=== PATIENT | female | born 2000 | race Caucasian/White ===

== ENCOUNTER 2020-03-26 05:11 | Emergency (ER) | payer OTHER ==
[~2020-03-26] VITALS: Ht 182.9 cm; Wt 152.4 kg
[2020-03-26] MEDS ORDERED: MIRT30 PO (05:36)
[2020-03-26 05:47] LABS: BASOPHILS ABSOLUTE AUTO 0.08 K/mm3 (0.00-0.23); BASOPHILS PERCENT AUTO 1 % (0-2); EOSINOPHILS ABSOLUTE AUTO 0.15 K/mm3 (0.00-0.68); EOSINOPHILS PERCENT AUTO 1 % (0-6); Hematocrit 41.7 % (33.0-51.0); Hemoglobin 13.5 g/dL (11.5-16.0); IMMATURE GRAN ABSOLUTE AUTO 0.03 K/mm3 (0.00-0.10); IMMATURE GRAN PERCENT AUTO 0 % (0-1); LYMPHOCYTES ABSOLUTE AUTO 3.35 K/mm3 (0.84-5.20); LYMPHOCYTES PERCENT AUTO 26 % (21-46); MONOCYTES ABSOLUTE AUTO 1.31 K/mm3 (0.16-1.47); MONOCYTES PERCENT AUTO 10 % (4-13); Mean Corpuscular HGB 28.1 pg (26.0-34.0); Mean Corpuscular HGB Conc 32.4 g/dL (31.5-36.5); Mean Corpuscular Volume 87 fL (80-100); Mean Platelet Volume 11.5 fL (9.1-12.4); NEUTROPHILS ABSOLUTE AUTO 7.97 K/mm3 (1.96-9.15); NEUTROPHILS PERCENT AUTO 62 % (41-73); Platelet Count 255 K/mm3 (150-400); RDW Coefficient Variation 12.9 % (11.7-14.2); RDW Standard Deviation 41.1 fL (35.1-46.3); White Blood Cell Count 12.89 K/mm3 (4.00-11.30)
[2020-03-26 06:05] LABS: Alanine Aminotransfer (ALT/SGP 24 U/L (12-78); Albumin, Blood 3.6 g/dL (3.4-5.0); Albumin/Globulin Ratio 0.9 (0.8-1.8); Alk Phos 107 U/L (45-116); Anion Gap 7 mmol/L (6-16); Aspartate Aminotrans (AST/SGOT 16 U/L (12-37); Bilirubin, Total 0.2 mg/dL (0.1-1.0); Blood Urea Nitrogen 11 mg/dL (8-21); Bun/Creatinine Ratio 9.7 (12.0-20.0); CO2, Blood 25 mmol/L (21-32); Calcium, Blood 8.7 mg/dL (8.5-10.1); Chloride, Blood 109 mmol/L (98-108); Creatinine, Blood 1.13 mg/dL (0.40-1.00); Globulin, Blood 3.8 g/dL (2.2-4.0); Glomerular Filtration Rate >60 (60-); Glucose, Blood 93 mg/dL (70-99); Potassium, Blood 3.7 mmol/L (3.5-5.5); Sodium, Blood 141 mmol/L (136-145); Total Protein, Blood 7.4 g/dL (6.4-8.2)
[2020-03-26 06:10] LABS: Source, Urine Clean Catch
[2020-03-26 06:13] LABS: Bilirubin, Urine Neg (Neg); Blood, Urine Neg (Neg); Glucose Qualitative, Urine Neg (Neg); Ketones, Urine 1+ (Neg); Leukocyte Esterase, Urine 2+ (Neg); Nitrite, Urine Neg (Neg); Protein, Urine 1+ (Neg); Urobilinogen, Urine 1+ (Normal); pH, Urine 6.5 (5.0-8.0)
[2020-03-26 06:33] LABS: Color, Urine Yellow (P-Yellow)
[2020-03-26 06:34] LABS: Appearance, Urine Clear (Clear)
[2020-03-26 06:35] LABS: Bacteria Few /hpf; Mucus Light (0-Heavy); Red Blood Cells, Urine 0-2 /hpf (0-2); Squamous Epithelial Cells Few /hpf (Few)
[2020-03-26] MEDS ORDERED: Prednisone20 MG PO (06:51)
[2020-03-26] MEDS ORDERED: Prilosec Otc20 MG PO (06:51)
== END 2020-03-26 07:05 | disposition home or self-care (01) ==
LOC: ER 05:11
PROVIDERS: Emergency Medicine
DX: R10.10 Upper abdominal pain, unspecified (principal); R05 Cough; F41.9 Anxiety disorder, unspecified; Z79.899 Other long term (current) drug therapy
CPT/HCPCS: 36415; 71046; 80053; 81001; 81025; 83690; 85025; 87086; 99283-25

== ENCOUNTER 2020-04-25 08:22 | Emergency (ER) | payer OTHER ==
[~2020-04-25] VITALS: Ht 182.9 cm; Wt 107.0 kg
[~2020-04-25 08:22] MED LIST: MIRT30 PO; Prednisone20 MG PO; Prilosec Otc20 MG PO
[2020-04-25] MEDS ORDERED: HYDHCL25 PO (13:24)
[2020-04-25] MEDS ORDERED: IBUP400 PO (13:24)
== END 2020-04-25 13:35 | disposition home or self-care (01) ==
LOC: ER 08:22
DX: J40 Bronchitis, not specified as acute or chronic (principal); F41.9 Anxiety disorder, unspecified; K21.9 Gastro-esophageal reflux disease without esophagitis; Z79.899 Other long term (current) drug therapy
CPT/HCPCS: 36415; 71046; 83880; 85379; 93005; 93010; 99284-25

== ENCOUNTER 2020-05-12 04:52 | Observation (INO) | payer OTHER ==
[~2020-05-12] VITALS: Ht 182.9 cm; Wt 122.5 kg
[~2020-05-12 04:52] MED LIST changes: +HYDHCL25 PO; +IBUP400 PO; -MIRT30 PO; +Mirtazapine7.5 MG PO
[2020-05-12 05:44] LABS: BASOPHILS ABSOLUTE AUTO 0.06 K/mm3 (0.00-0.23); BASOPHILS PERCENT AUTO 1 % (0-2); EOSINOPHILS ABSOLUTE AUTO 0.14 K/mm3 (0.00-0.68); EOSINOPHILS PERCENT AUTO 1 % (0-6); Hematocrit 40.6 % (33.0-51.0); Hemoglobin 13.1 g/dL (11.5-16.0); IMMATURE GRAN ABSOLUTE AUTO 0.05 K/mm3 (0.00-0.10); IMMATURE GRAN PERCENT AUTO 1 % (0-1); LYMPHOCYTES ABSOLUTE AUTO 3.13 K/mm3 (0.84-5.20); LYMPHOCYTES PERCENT AUTO 31 % (21-46); MONOCYTES ABSOLUTE AUTO 1.06 K/mm3 (0.16-1.47); MONOCYTES PERCENT AUTO 11 % (4-13); Mean Corpuscular HGB 27.8 pg (26.0-34.0); Mean Corpuscular HGB Conc 32.3 g/dL (31.5-36.5); Mean Corpuscular Volume 86 fL (80-100); Mean Platelet Volume 12.1 fL (9.1-12.4); NEUTROPHILS ABSOLUTE AUTO 5.62 K/mm3 (1.96-9.15); NEUTROPHILS PERCENT AUTO 56 % (41-73); Platelet Count 290 K/mm3 (150-400); RDW Coefficient Variation 13.1 % (11.7-14.2); Red Blood Cell Count 4.71 M/mm3 (3.80-5.20); White Blood Cell Count 10.06 K/mm3 (4.00-11.30)
[2020-05-12 06:12] LABS: Alanine Aminotransfer (ALT/SGP 160 U/L (12-78); Albumin, Blood 3.6 g/dL (3.4-5.0); Albumin/Globulin Ratio 0.9 (0.8-1.8); Alk Phos 196 U/L (45-116); Anion Gap 8 mmol/L (6-16); Aspartate Aminotrans (AST/SGOT 164 U/L (12-37); Bilirubin, Total 0.9 mg/dL (0.1-1.0); Blood Urea Nitrogen 10 mg/dL (8-21); Bun/Creatinine Ratio 10.3 (12.0-20.0); CO2, Blood 23 mmol/L (21-32); Calcium, Blood 8.4 mg/dL (8.5-10.1); Chloride, Blood 109 mmol/L (98-108); Creatinine, Blood 0.97 mg/dL (0.40-1.00); Globulin, Blood 3.8 g/dL (2.2-4.0); Glomerular Filtration Rate >60 (60-); Glucose, Blood 93 mg/dL (70-99); Potassium, Blood 3.6 mmol/L (3.5-5.5); Sodium, Blood 140 mmol/L (136-145); Total Protein, Blood 7.4 g/dL (6.4-8.2)
[2020-05-12 06:23] LABS: Source, Urine Clean Catch
[2020-05-12 06:32] LABS: Blood, Urine Neg (Neg); Glucose Qualitative, Urine Neg (Neg); Ketones, Urine 1+ (Neg); Leukocyte Esterase, Urine 1+ (Neg); Nitrite, Urine Neg (Neg); Protein, Urine 2+ (Neg); Specific Gravity, Urine 1.015 (1.003-1.022); Urobilinogen, Urine 4+ (Normal)
[2020-05-12 06:40] LABS: Bilirubin, Urine 2+ (Neg)
[2020-05-12 06:41] LABS: Appearance, Urine Hazy (Clear); Bacteria Rare /hpf; Color, Urine Yellow (P-Yellow); Red Blood Cells, Urine Not Seen /hpf (0-2); Squamous Epithelial Cells Few /hpf (Few); White Blood Cells, Urine 0-2 /hpf (0-5)
--- NOTE | 2020-05-12 09:19 | NUR ---
PT ARRIVED TO UNIT FROM ER AT APROX 0900 VIA WHEELCHAIR. PT C/O 5/10 RUQ PAIN, MEDICATED WITH 0.5MG DILAUDID AND 4MG ZOFRAN AT THIS TIME. ORIENTED TO UNIT. DR PATEL NOTIFIED BY ER. PLAN IS FOR PT TO GO TO OR TODAY.
--- NOTE | 2020-05-12 16:21 | NUR ---
Ambulatory in Day Surgery. Surgical site prepped with 2% Chlorhexidine cloth wipe. Lungs clear T/O to Auscultation. History, Chart, Medications and Allergies reviewed before start of procedure.Patient confirms NPO status and agrees with scheduled surgery. Pre-Op teaching done. Pt verbalizes understanding. Patient States Post-Procedure ride home has been arranged.
[2020-05-12] MEDS ORDERED: ALBU90OI INH (18:34)
[2020-05-12] MEDS ORDERED: ALBU2.5V5 NEB (18:35)
--- NOTE | 2020-05-12 19:12 | NUR ---
SHIFT SUMMARY PT RETURNED TO UNIT FROM PACU AT APROX 1830. LAP SITES X'S 4 C/D/I COVERED WITH GAUZE/TAPE. PT APPEARS TO BE RESTING COMFORTABLY AT THIS TIME. MOTHER AT BEDSIDE.
--- NOTE | 2020-05-13 03:40 | NUR ---
POD 1 S/P LAP SHANTEL. PT WAS ANXIOUS AND FEARFUL AT BEGINNING OF SHIFT. PT IS NOW MUCH BETTER, PAIN IS TOLERABLE. NO N/V. HAS BEEN TOLERATING PO, WILL SL AFTER THIS BAF OF LR. PT UP AMBULATING AND VOIDING WELL. STERI STRIPS INTACT WITH MIN SCAN DRAINAGE. PLAN FOR DC HOME TODAY. MOM HAS REMAINED AT BEDSIDE ALL SHIFT.
[2020-05-13 04:47] LABS: Albumin, Blood 3.4 g/dL (3.4-5.0); Albumin/Globulin Ratio 0.9 (0.8-1.8); Bilirubin, Direct 0.2 mg/dL (0.0-0.3); Bilirubin, Indirect 0.5 mg/dL (0.1-0.7); Bilirubin, Total 0.7 mg/dL (0.1-1.0); Globulin, Blood 3.9 g/dL (2.2-4.0); Total Protein, Blood 7.3 g/dL (6.4-8.2)
--- NOTE | 2020-05-13 15:47 | NUR ---
05/13/20 1547 [place] VERIFICATIONS: EDIT CHART.
[2020-05-13] MEDS ORDERED: Norco 5-325 Ta1 EACH PO (16:06)
== END 2020-05-13 18:15 | disposition home or self-care (01) ==
LOC: ER 04:52 → SURS 04:53
PROVIDERS: Emergency Medicine; ADMIT Surgery
PROC: BF03YZZ Plain Radiography of Gallbladder and Bile Ducts using Other Contrast (ICD-10-PCS; principal; 2020-05-12 14:30)
PROC: 0FT44ZZ Resection of Gallbladder, Percutaneous Endoscopic Approach (ICD-10-PCS; principal; 2020-05-12 14:30)
DX: K80.10 Calculus of gallbladder with chronic cholecystitis without obstruction (principal); Z88.8 Allergy status to other drugs, medicaments and biological substances; Z91.018 Allergy to other foods; J45.909 Unspecified asthma, uncomplicated; Z79.899 Other long term (current) drug therapy
CPT/HCPCS: 36415; 74300; 76705; 80053; 80076; 81001; 81025; 83690; 85025; 87086; 88304; 96360; 96361; 96374; 99285-25; A9270-GY; C1729; G0378; J0690; J1100; J1170; J1885; J2250; J2405; J2704; J2710; J3010; J7120; U0002

== ENCOUNTER 2022-11-02 17:08 | Emergency (ER) | payer OTHER ==
[~2022-11-02] VITALS: Ht 182.9 cm; Wt 113.4 kg
[~2022-11-02 17:08] MED LIST changes: +ALBU2.5V5 NEB; +ALBU90OI INH; +Norco 5-325 Ta1 EACH PO
[2022-11-02 18:10] LABS: BASOPHILS ABSOLUTE AUTO 0.05 K/mm3 (0.00-0.23); BASOPHILS PERCENT AUTO 1 % (0-2); EOSINOPHILS ABSOLUTE AUTO 0.08 K/mm3 (0.00-0.68); EOSINOPHILS PERCENT AUTO 1 % (0-6); Hematocrit 40.5 % (33.0-51.0); Hemoglobin 14.2 g/dL (11.5-16.0); IMMATURE GRAN ABSOLUTE AUTO 0.03 K/mm3 (0.00-0.10); IMMATURE GRAN PERCENT AUTO 0 % (0-1); LYMPHOCYTES ABSOLUTE AUTO 2.82 K/mm3 (0.84-5.20); LYMPHOCYTES PERCENT AUTO 26 % (21-46); MONOCYTES ABSOLUTE AUTO 0.84 K/mm3 (0.16-1.47); MONOCYTES PERCENT AUTO 8 % (4-13); Mean Corpuscular HGB 29.6 pg (26.0-34.0); Mean Corpuscular HGB Conc 35.1 g/dL (31.5-36.5); Mean Corpuscular Volume 85 fL (80-100); Mean Platelet Volume 12.8 fL (9.1-12.4); NEUTROPHILS ABSOLUTE AUTO 7.04 K/mm3 (1.96-9.15); NEUTROPHILS PERCENT AUTO 65 % (41-73); Platelet Count 255 K/mm3 (150-400); RDW Coefficient Variation 12.7 % (11.7-14.2); RDW Standard Deviation 39.3 fL (35.1-46.3); Red Blood Cell Count 4.79 M/mm3 (3.80-5.20); White Blood Cell Count 10.86 K/mm3 (4.00-11.30)
[2022-11-02 18:25] LABS: Albumin, Blood 3.7 g/dL (3.4-5.0); Albumin/Globulin Ratio 1.1 (0.8-1.8); Bilirubin, Total 0.4 mg/dL (0.1-1.0); Bun/Creatinine Ratio 12.7 (12.0-20.0); Creatinine, Blood 0.87 mg/dL (0.40-1.00); Globulin, Blood 3.5 g/dL (2.2-4.0); Magnesium, Blood 2.3 mg/dL (1.6-2.4); Potassium, Blood 3.7 mmol/L (3.5-5.5); Total Protein, Blood 7.2 g/dL (6.4-8.2)
[2022-11-02 19:39] LABS: Appearance, Urine Clear (Clear); Bilirubin, Urine Neg (Neg); Blood, Urine Neg (Neg); Color, Urine Yellow (P-Yellow); Glucose Qualitative, Urine Neg (Neg); Ketones, Urine Neg (Neg); Leukocyte Esterase, Urine 1+ (Neg); Nitrite, Urine Neg (Neg); Protein, Urine Neg (Neg); Urobilinogen, Urine NORM (Normal)
[2022-11-02 19:54] LABS: Bacteria Many /hpf; Red Blood Cells, Urine 0-2 /hpf (0-2); Squamous Epithelial Cells Few /hpf (Few)
[2022-11-02 21:59] LABS: Thyroid Stimulating Hormone 2.21 uIU/mL (0.360-4.800)
== END 2022-11-02 21:54 | disposition home or self-care (01) ==
LOC: ER 17:08
PROVIDERS: Physician Assistant
DX: R29.898 Other symptoms and signs involving the musculoskeletal system (principal); R53.1 Weakness; M62.838 Other muscle spasm; J45.909 Unspecified asthma, uncomplicated; Z91.040 Latex allergy status; Z79.899 Other long term (current) drug therapy
CPT/HCPCS: 36415; 80053; 81001; 81025; 82607; 83735; 84443; 85025; 87086